=== PATIENT | female | born 1985 | race American Indian/Alaskan Native ===

== ENCOUNTER 2016-03-24 12:06 | Emergency (ER) | payer MEDICAID ==
--- NOTE | 2016-03-24 12:22 | Emergency Department Report ---
Chief Complaint: Vaginal Bleeding Stated Complaint: POSS MISCARRIAGE Time Seen by Provider: 03/24/16 12:18 - HPI History of Present Illness: 30 y/o female complain of slip and fall x 1 day ago ..pt state she is 10 weeks and is concern about the baby .pt denies any abdominal pain .denies any bleeding .pt state next visit with [facility] is on the 04/04/2016 .LMP 2015 - ROS Review of Systems: per HPI - Exam Vital Signs: Vital Signs 03/24/16 12:09 Temperature 98.6 F Pulse Rate 95 H Respiratory 16 Rate Blood Pressure 139/75 O2 Sat by Pulse 98 Oximetry Physical Exam: GENERAL: The patient is well-developed and well-nourished. Patient is in NAD. HENT: Normocephalic. Atraumatic. Patient has moist mucous membranes. Throat: No erythema, swelling or exudates. EYES: Extraocular motions are intact, PERRL NECK: Supple. No meningitic signs are noted. There is no adenopathy noted. CHEST/LUNGS: Clear to auscultation bilaterally. No wheezing, rales or rhonchi noted. There is no respiratory distress noted. HEART/CARDIOVASCULAR: Regular rate and rhythm. Normal S1 S2. No murmurs, rubs , clicks, or gallops. ABDOMEN: Abdomen is soft, nontender.. Bowel sounds normoactive. There is no abdominal distention. Negative rebound tenderness. : Deferred. SKIN: There is no rash. There is no edema. There is no diaphoresis. NEURO: The patient is A&Ox3. The patient has no focal neurologic deficits. MUSCULOSKELETAL: There is no tenderness or deformity. There is no limitation range of motion. PSYCH: Pt has appropriate mood and affect. MSE screening note: Focused history and physical exam performed. Due to findings the following was ordered: ED Disposition for MSE Condition: Stable
[2016-03-24 13:01] LABS: Eosinophils % (Auto) 1.2 % (0.0-4.3); Hematocrit 36.5 % (30.3-42.9); Hemoglobin 12.6 gm/dl (10.1-14.3); Mean Corpuscular HGB Conc 34 % (30-34); Mean Corpuscular Hemoglobin 32 pg (28-32); Mean Corpuscular Volume 92 fl (79-97); Platelet Count 200 K/mm3 (140-440); Red Blood Count 3.96 M/mm3 (3.65-5.03); Red Cell Distribution Width 12.1 % (13.2-15.2); White Blood Count 3.6 K/mm3 (4.5-11.0)
[2016-03-24 13:13] LABS: Anion Gap 16 mmol/L; Blood Urea Nitrogen 12 mg/dL (7-17); Carbon Dioxide 24 mmol/L (22-30); Chloride 98.4 mmol/L (98-107); Glucose 76 mg/dL (65-100); Potassium 3.5 mmol/L (3.6-5.0); Sodium 135 mmol/L (137-145)
[2016-03-24 14:02] LABS: Bilirubin,Urine NEG (Negative); Blood,Urine NEG (Negative); Ketones,Urine NEG (Negative); Leukocyte Esterase,Urine NEG (Negative); Mucus,Urine 2+ /HPF; Nitrite,Urine NEG (Negative); Protein,Urine <15 mg/dL mg/dL (Negative); Urobilinogen,Urine < 2.0 mg/dL (<2.0)
[2016-03-24 14:56] VITALS: BP 127/66
--- NOTE | 2016-03-24 15:45 | Emergency Department Report ---
ED Female HPI - General Chief complaint: Vaginal Bleeding Stated complaint: POSS MISCARRIAGE Time Seen by Provider: 03/24/16 14:45 Source: patient Mode of arrival: Ambulatory Limitations: No Limitations - History of Present Illness Initial comments: 30-year-old female presents to the emergency department complaining of cramping and leakage of clear vaginal fluid. Patient states that she slipped and fell down some stairs yesterday evening. She states that she landed on her buttocks and slid down the stairs. Since that time she's had the cramping and leakage of clear fluid. Patient states she is approximately 10 weeks . This is her sixth . Patient has 4 live children, but had a miscarriage in November 2015. At this time, patient reports no cramping. She denies any vaginal bleeding. There are no other complaints. -: Gradual, Last night Location: suprapubic Radiation: non-radiating Severity: mild Quality: cramping Consistency: intermittent Improves with: none Worsens with: none Are you Now?: Yes - Related Data Sexually active: Yes : 6 Para: 4 A: 1 Allergies Allergy/AdvReac Type Severity Reaction Status Date / Time No Known Allergies Allergy Unverified 03/24/16 12:09 ED Review of Systems ROS: Stated complaint: POSS MISCARRIAGE Other details as noted in HPI Comment: All other systems reviewed and negative Genitourinary: as per HPI ED Past Medical Hx - Past Medical History Previous Medical History?: Yes Additional medical history: miscarriage - Surgical History Past Surgical History?: No - Family History Family history: no significant - Social History Smoking Status: Unknown if ever smoked Substance Use Type: None ED Physical Exam - General Limitations: No Limitations General appearance: alert, in no apparent distress - Head Head exam: Present: atraumatic, normocephalic - Eye Eye exam: Present: normal appearance, PERRL, EOMI - ENT ENT exam: Present: normal exam, normal orophraynx, mucous membranes moist - Neck Neck exam: Present: normal inspection, full ROM. Absent: tenderness - Respiratory Respiratory exam: Present: normal lung sounds bilaterally. Absent: respiratory distress - Cardiovascular Cardiovascular Exam: Present: regular rate, normal rhythm, normal heart sounds - GI/Abdominal GI/Abdominal exam: Present: soft, normal bowel sounds. Absent: distended, tenderness - Extremities Exam Extremities exam: Present: normal inspection, full ROM. Absent: tenderness - Back Exam Back exam: Present: normal inspection, full ROM. Absent: tenderness - Neurological Exam Neurological exam: Present: alert, oriented X3. Absent: motor sensory deficit - Skin Skin exam: Present: warm, dry, intact ED Course Vital Signs 03/24/16 03/24/16 03/24/16 12:09 14:49 14:50 Temperature 98.6 F Pulse Rate 95 H 79 69 Respiratory 16 20 19 Rate Blood Pressure 139/75 127/66 O2 Sat by Pulse 98 99 99 Oximetry ED Medical Decision Making - Lab Data Result diagrams: 03/24/16 12:41 03/24/16 12:41 - Radiology Data Radiology results: image reviewed interpreted by me: Pelvic ultrasound reveals a single live intrauterine with estimated gestational age of 11 weeks 0 days. heart rate is noted at 168 bpm. - Medical Decision Making Lab and imaging results reviewed and discussed with the patient. Patient will be discharged home at this time to follow up with her [facility] [employer]. Patient is instructed to return to the emergency department for worsening pain or vaginal bleeding. - Differential Diagnosis spontaneous , threatened Critical care attestation.: If time is entered above; I have spent that time in minutes in the direct care of this critically ill patient, excluding procedure time. ED Disposition Clinical Impression: Threatened in first trimester Disposition: DISCHARGED TO HOME OR SELFCARE Is pt being admited?: No Condition: Stable Instructions: Threatened Miscarriage (ED) Referrals: VLADISLAV DE LOS SANTOS MD [Primary Care Provider] - 3-5 Days Time of Disposition: 15:47
--- NOTE | 2016-03-27 10:56 | Ultrasound Report ---
FINAL REPORT EXAM: US OB < = 14 WEEKS FETUS HISTORY: Vaginal bleeding with pelvic pain and cramping status post fall. LMP 01/12/2016 with estimated gestational age 10 weeks 2 days and EDC 10/18/2016 TECHNIQUE: Ultrasound of the pelvis using transabdominal imaging PRIORS: None. FINDINGS: Uterus: Uterus is enlarged in size and normal and homogeneous in echogenicity without focal fibroid formation. The uterus measures 11.0 x 7.3 x 10.7 cm in size. There is a single early viable intrauterine gestation noted. Intrauterine gestation: There is a single intrauterine gestation identified with both a pole and yolk sac. heart rate is monitored at 168 BPM. [place]-rump length measurement of 3.95 cm corresponds to estimated age 10 weeks 6 days and an EDC 10/14/2016. No evidence for subchorionic hemorrhage is seen. Ovaries: Both ovaries appear normal in size and echogenicity with normal blood flow bilaterally. The right ovary measures 2.1 x 1.0 x 1.5 cm on the left ovary measures 3.7 x 1.9 x 2.1 cm in size. There is a cyst in the left ovary measuring 1.3 x 0.8 x 0.8 cm. Other: There is no evidence for solid adnexal mass is seen. There is minimal free fluid in the cul-de-sac. IMPRESSION: Single intrauterine viable with an approximate age of 10 weeks 6 days. This has good approximation of the station on dates with the LMP.
--- NOTE | 2016-03-27 10:56 | Ultrasound Report ---
FINAL REPORT EXAM: US OB TRANSVAGINAL HISTORY: fall Vaginal bleeding with pelvic pain and cramping status post fall. LMP 01/12/2016 with estimated gestational age 10 weeks 2 days and EDC 10/18/2016 TECHNIQUE: Ultrasound of the pelvis using transvaginal imaging PRIORS: Transabdominal pelvic ultrasound from the same day timed 1405 hours FINDINGS: Uterus: Uterus is enlarged in size and normal and homogeneous in echogenicity without focal fibroid formation. The uterus measures 11.0 x 7.3 x 10.7 cm in size. There is a single early viable intrauterine gestation noted. Intrauterine gestation: There is a single intrauterine gestation identified with both a pole and yolk sac. heart rate is monitored at 168 BPM. [place]-rump length measurement of 3.95 cm corresponds to estimated age 10 weeks 6 days and an EDC 10/14/2016. No evidence for subchorionic hemorrhage is seen. Ovaries: Both ovaries appear normal in size and echogenicity with normal blood flow bilaterally. The right ovary measures 2.1 x 1.0 x 1.5 cm on the left ovary measures 3.7 x 1.9 x 2.1 cm in size. There is a cyst in the left ovary measuring 1.3 x 0.8 x 0.8 cm. Other: There is no evidence for solid adnexal mass is seen. There is minimal free fluid in the cul-de-sac. IMPRESSION: Single intrauterine viable with an approximate age of 10 weeks 6 days. This has good approximation to the estimated gestational dates using the LMP.
== END 2016-03-24 16:00 | disposition home or self-care (01) ==
LOC: ED 12:06
DX: O20.0 Threatened abortion (principal); Z3A.11 11 weeks gestation of pregnancy
CPT/HCPCS: 36415; 76801; 76817; 80048; 81001; 84702; 85025; 86850; 86900; 86901

== ENCOUNTER 2017-10-23 09:36 | Emergency (ER) | payer MEDICAID ==
[2017-10-23 09:44] VITALS: BP 122/67
--- NOTE | 2017-10-23 09:52 | Emergency Department Report ---
Blank Doc - Documentation Documentation: Patient is a 32-year-old Bangl[place] female who is complaining of swelling to the left axilla for the past 3 weeks. Patient tried to take a safety pin and lanced this area herself and it got worse. Patient is complaining of 8 out of 10 pain and palpable on palpation. Patient denies any fevers nausea vomiting diarrhea. A focused physical exam patient has golf ball size area of fluctuance in the left axilla. Patient removed her treatment for incision and drainage.
[2017-10-23] MEDS ORDERED: TORADOL IM ONE (09:53)
[2017-10-23] MEDS ORDERED: XYLOCAINE 1% 20 mL INFILTRATI ONE (09:53)
--- NOTE | 2017-10-23 10:27 | Emergency Department Report ---
Abscess Boil HPI - HPI Chief Complaint: Skin/Abscess/Foreign Body Stated Complaint: LUMPS UNDER ARM/PAIN Time Seen by Provider: 10/23/17 09:37 Duration: >1 Week Location: Upper Extremity (3 weeks) Severity: Moderate (6/10) History: Yes Pain (6/10 to both axilla), No Fever, No Purulent Drainage, No Numbness, No Foreign Body, No Previous History, No Insect Bite HPI: Patient is a 32-year-old [place] female who is complaining of swelling to the left axilla for the past 3 weeks. Patient tried to take a safety pin and lanced this area herself and it got worse. Patient is complaining of 8 out of 10 pain and palpable on palpation. 6/10 without palpation. Patient denies any fevers nausea vomiting diarrhea. Tetanus shot is less than 5 years. Denies any respiratory problems. Home Medications: Previous Rx's Medication Instructions Recorded Last Taken Type Ibuprofen [Motrin] 600 mg PO Q8H PRN #12 tablet 10/23/17 Unknown Rx Sulfamethoxazole/Trimethoprim 1 each PO BID 10 Days #20 tablet 10/23/17 Unknown Rx [Bactrim DS TAB] Allergies/Adverse Reactions: Allergies Allergy/AdvReac Type Severity Reaction Status Date / Time No Known Allergies Allergy Verified 10/23/17 09:44 ED Review of Systems ROS: Stated complaint: LUMPS UNDER ARM/PAIN Other details as noted in HPI Constitutional: denies: chills, fever ENT: denies: ear pain, throat pain, congestion Respiratory: denies: cough, shortness of breath, SOB with exertion, SOB at rest , wheezing Cardiovascular: denies: chest pain, palpitations Gastrointestinal: denies: abdominal pain, nausea, vomiting, diarrhea Skin: other (painful boil to both armpit). denies: rash, lesions, pruritus Neurological: denies: weakness ED Past Medical Hx - Past Medical History Previous Medical History?: Yes Additional medical history: miscarriage - Surgical History Past Surgical History?: No - Family History Family history: hypertension - Social History Smoking Status: Never Smoker Substance Use Type: Alcohol - Medications Home Medications: Home Medications Medication Instructions Recorded Confirmed Last Taken Type Ibuprofen [Motrin] 600 mg PO Q8H PRN #12 tablet 10/23/17 Unknown Rx Sulfamethoxazole/Trimethoprim 1 each PO BID 10 Days #20 tablet 10/23/17 Unknown Rx [Bactrim DS TAB] ED Abscess Boil Physical Exam - Exam General: Vital signs noted. No distress. Alert and acting appropriately. This is a 32-year-old female well-nourished well-developed in no acute distress in Front/Back of Body, Lg (Color): 1 - Patient indurated ,fluctuant area to right axilla with no erythema and tender to palpate. 3 cm 2 - Patient with 5 cm indurated and mild fluctuant to left axilla tenderness to palpate. No drainage. No erythema Size: 5 cm Exam: Yes Tenderness (tender to palpate both axilla), Yes Fluctuance ( fluctuance to right axilla and mild fluctuance in left axilla), Yes Normal Neurologic Exam (no neurovascular compromise), Yes Normal Circulation (+2 pulses. Good color, sensation, temperature and pulses to extremities), No Surrounding Cellulites/Erythema, No Lymphangitis, No Crepitation, No Heart Murmur (S1S2) Exam: Lungs: Clear to auscultation bilaterally, no rhonchi wheezes or rales. CV : S1S2. I & D Note - I & D Note I & D Note: Incision and drainage: Both axilla. Area cleansed with iodine and normal saline. 5 mL of 2% lidocaine instilled in the left axilla and to 2 mL of 2% lidocaine after cleaning was iodine and no filling to right axilla. #11 blade used to make 0.5 cm laceration to left axilla and 0.25 cm to right axilla. Area is explored with hemostats. Patient tetanus vaccines up-to-date. After pus expressed breast from both site packed with half-inch iodoform packing followed by sterile dry dressing. She tolerated procedure well. Large amount of pus expressed from left axilla and very small amount of pus from right abdomen. She is to return in 4 days to have packing removed from both sites. ED Course Vital Signs 10/23/17 10/23/17 09:40 10:13 Temperature 98.5 F Pulse Rate 75 Respiratory 18 20 Rate Blood Pressure 122/67 O2 Sat by Pulse 100 Oximetry - Reevaluation(s) Reevaluation #1: 10/23/17 14:48 Patient received Toradol 60 mg IM prior to procedure for pain. Her pain is better. She also received Bactrim DS 1 tablet after procedure and will be sent home with prescription for Bactrim. No adverse reaction. Critical care attestation.: If time is entered above; I have spent that time in minutes in the direct care of this critically ill patient, excluding procedure time. ED Medical Decision Making - Medical Decision Making This is a 32-year-old female came to the hospital for treatment of abscess to both axilla. This is been ongoing over couple weeks and she states are painful. No medication taken. Tetanus vaccine in 2016. Shoulder examination and found to have 5 cm indurated fluctuant area to left axilla without any erythema and 3 cm indurated minimal fluctuance to right axilla. No erythema noted. Patient has no drainage. Extremity exam is normal. Lungs and heart with normal exam. Abscesses to her bilateral axilla incision and drained. Please see procedure note for details. Tetanus vaccines up-to-date. Patient was given Toradol 60 mg IM emergency room for pain prior to procedure which controlled her pain along with lidocaine during procedure. She was started on Bactrim DS which she tolerated well without any adverse reaction. I discussed the patient she needs to return in 4 days to have packing removed from both sites and she voiced understanding. Discharge instruction given on acute wound care, medication, returning to the emergency room for removal of packing. He voiced understanding. Patient discharged home in stable condition status post incision and drainage of abscess from bilateral axilla. Her vital signs are stable she is afebrile. Pain is controlled. Discharged home a prescription for Bactrim DS and Motrin. ED Disposition Clinical Impression: Abscess of axillary region Disposition: -01 TO HOME OR SELFCARE Is pt being admited?: No Does the pt Need Aspirin: No Condition: Stable Instructions: Abscess Incision and Drainage (ED) Additional Instructions: Please see discharge instruction in acute wound care Apply warm compresses to affected area 4 times a day to facilitate then and increased drainage return to emergency room in 4 days for removal of packing Keep affected area clean and dry Motrin for pain and please take medication with food to prevent nausea or irritation to stomach lining Take Bactrim DS for infection Return to the emergency room if, he developed fever, chills, increased pain and drainage from site, nausea and vomited, increase in redness and/or weakness. Prescriptions: Ibuprofen [Motrin] 600 mg PO Q8H PRN #12 tablet PRN Reason: Pain Sulfamethoxazole/Trimethoprim [Bactrim DS TAB] 1 each PO BID 10 Days #20 tablet Referrals: PRIMARY CAREMD [Primary Care Provider] - 3-5 Days PEDRO MORENO MD [Staff Physician] - 3-5 Days Forms: Work/School Release Form(ED)
[2017-10-23] MEDS ORDERED: BACTRIM DS PO ONE (13:23)
== END 2017-10-23 13:30 | disposition home or self-care (01) ==
LOC: ED 09:36
DX: L02.412 Cutaneous abscess of left axilla (principal); L02.411 Cutaneous abscess of right axilla
CPT/HCPCS: 10061; 96372; 99282; J1885

== ENCOUNTER 2017-10-27 14:43 | Emergency (ER) | payer MEDICAID ==
[2017-10-27 15:02] VITALS: BP 139/66
--- NOTE | 2017-10-27 15:13 | Emergency Department Report ---
ED Recheck HPI - General Chief Complaint: Skin/Abscess/Foreign Body Stated Complaint: REMOVAL OF PACKING Time Seen by Provider: 10/27/17 15:10 Source: patient Mode of arrival: Ambulatory Limitations: No Limitations - History of Present Illness Initial Comments: This is a 32-year-old female nontoxic in appearance with no signs of distress presents to the ER with abscess packing removal. Patient had a incision and drainage done 4 days ago to bilateral axilla area. Patient states she did not take antibiotics but should take antibiotics only for one day which made her nauseous and vomiting. Patient stated she wants a different prescription for antibiotics. I will discharge patient with clindamycin. Patient denies any pus , drainage, fever, chills, nausea, vomiting, chest pressures of breath. Patient is symptoms are improved. She denies any allergies or significant past medical history. MD Complaint: wound re-check -: days(s) (4) Initial Visit For: abscess Returns Today for: wound recheck Symptoms Since Prior Visit: no new symptoms, improved Context: planned re-check Associated Symptoms: none. denies: fever, chills, chest pain, shortness of breath, rash, malaise, nasuea, abdominal pain - Related Data Previous Rx's Medication Instructions Recorded Last Taken Type Ibuprofen [Motrin] 600 mg PO Q8H PRN #12 tablet 10/23/17 Unknown Rx Sulfamethoxazole/Trimethoprim 1 each PO BID 10 Days #20 tablet 10/23/17 Unknown Rx [Bactrim DS TAB] Clindamycin [Clindamycin CAP] 300 mg PO Q8H #21 cap 10/27/17 Unknown Rx Allergies Allergy/AdvReac Type Severity Reaction Status Date / Time No Known Allergies Allergy Verified 10/23/17 09:44 ED Review of Systems ROS: Stated complaint: REMOVAL OF PACKING Other details as noted in HPI Constitutional: denies: chills, fever Eyes: denies: eye pain, eye discharge, vision change ENT: denies: ear pain, throat pain Respiratory: denies: cough, shortness of breath, wheezing Cardiovascular: denies: chest pain, palpitations Endocrine: no symptoms reported Gastrointestinal: denies: abdominal pain, nausea, diarrhea Genitourinary: denies: urgency, dysuria, discharge Musculoskeletal: denies: back pain, joint swelling, arthralgia Skin: denies: rash, lesions Neurological: denies: headache, weakness, paresthesias Psychiatric: denies: anxiety, depression Hematological/Lymphatic: denies: easy bleeding, easy bruising ED Past Medical Hx - Past Medical History Additional medical history: miscarriage - Social History Smoking Status: Never Smoker Substance Use Type: None - Medications Home Medications: Home Medications Medication Instructions Recorded Confirmed Last Taken Type Ibuprofen [Motrin] 600 mg PO Q8H PRN #12 tablet 10/23/17 Unknown Rx Sulfamethoxazole/Trimethoprim 1 each PO BID 10 Days #20 tablet 10/23/17 Unknown Rx [Bactrim DS TAB] Clindamycin [Clindamycin CAP] 300 mg PO Q8H #21 cap 10/27/17 Unknown Rx ED Physical Exam - General Limitations: No Limitations General appearance: alert, in no apparent distress - Head Head exam: Present: atraumatic, normocephalic - Eye Eye exam: Present: normal appearance - ENT ENT exam: Present: mucous membranes moist - Neck Neck exam: Present: normal inspection - Respiratory Respiratory exam: Present: normal lung sounds bilaterally. Absent: respiratory distress - Cardiovascular Cardiovascular Exam: Present: regular rate, normal rhythm. Absent: systolic murmur, diastolic murmur, rubs, gallop - GI/Abdominal GI/Abdominal exam: Present: soft, normal bowel sounds - Extremities Exam Extremities exam: Present: normal inspection - Back Exam Back exam: Present: normal inspection - Neurological Exam Neurological exam: Present: alert, oriented X3 - Psychiatric Psychiatric exam: Present: normal affect, normal mood - Skin Skin exam: Present: warm, dry, intact, normal color. Absent: rash ED Course Vital Signs 10/27/17 14:58 Temperature 98.2 F Pulse Rate 67 Respiratory 18 Rate Blood Pressure 139/66 O2 Sat by Pulse 98 Oximetry - Reevaluation(s) Reevaluation #1: 10/27/17 15:12 Patient is speaking in full sentences with no signs of distress noted. ED Recheck MDM - Medical Decision Making Packing removed to axilla area. Patient tolerated are well. Patient discharged with clindamycin. At time of discharge, the patient does not seem toxic or ill in appearance. No acute signs of distress noted. Patient agrees to discharge treatment plan of care. No further questions noted by the patient. Critical care attestation.: If time is entered above; I have spent that time in minutes in the direct care of this critically ill patient, excluding procedure time. ED Disposition Clinical Impression: Abscess packing removal Disposition: DC-01 TO HOME OR SELFCARE Is pt being admited?: No Does the pt Need Aspirin: No Condition: Stable Instructions: Abscess (ED) Additional Instructions: Follow-up with a primary care doctor in 3-5 days or if symptoms worsen and continue return to emergency room as soon as possible. Prescriptions: Clindamycin [Clindamycin CAP] 300 mg PO Q8H #21 cap Referrals: PRIMARY CAREMD [Referring] - 3-5 Days JUDE HARP MD [Staff Physician] - 3-5 Days [facility] [Outside] - 3-5 Days
== END 2017-10-27 15:20 | disposition home or self-care (01) ==
LOC: ED 14:43
DX: Z48.00 Encounter for change or removal of nonsurgical wound dressing (principal); R11.2 Nausea with vomiting, unspecified
CPT/HCPCS: 99282

== ENCOUNTER 2018-10-29 11:36 | Emergency (ER) | payer OTHER ==
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
[2018-10-29 11:43] VITALS: BP 124/68
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
--- NOTE | 2018-10-29 12:32 | XRay Report ---
Lumbosacral spine, 3 views INDICATION: low back pain. COMPARISON: None. IMPRESSION: There is normal alignment of the lumbar vertebra although minimal levocurvature in the l umbar spine is demonstrated. No significant discogenic DJD or facet arthropathy. No acute osseous o r soft tissue abnormality. Signer Name: Magan Hines Jr, MD Signed: 10/29/2018 12:28 PM Workstation Name: [id number]
== END 2018-10-29 12:58 | disposition home or self-care (01) ==
LOC: ED 11:36
DX: M54.5 Low back pain (principal); F17.200 Nicotine dependence, unspecified, uncomplicated; Z79.899 Other long term (current) drug therapy; V49.49XA Driver injured in collision with other motor vehicles in traffic accident, initial encounter; Y93.89 Activity, other specified; Y92.410 Unspecified street and highway as the place of occurrence of the external cause; Y99.8 Other external cause status
CPT/HCPCS: 72100